=== PATIENT | female | born 1995 | race Caucasian/White ===

== ENCOUNTER 2016-10-09 10:17 | Emergency (ER) | payer OTHER | END 2016-10-09 11:03 | disposition home or self-care (01) | LOC: ER 10:17 | DX: O99.89 Other specified diseases and conditions complicating pregnancy, childbirth and the puerperium (principal); R10.30 Lower abdominal pain, unspecified ==

== ENCOUNTER 2016-10-19 18:32 | Emergency (ER) | payer OTHER | END 2016-10-19 20:29 | disposition home or self-care (01) | LOC: ER 18:32 | DX: O99.89 Other specified diseases and conditions complicating pregnancy, childbirth and the puerperium (principal); R10.32 Left lower quadrant pain | CPT/HCPCS: 36415 ==